=== PATIENT | male | born 1970 | race Caucasian/White ===

== ENCOUNTER 2020-09-14 14:03 | Inpatient (IN) | payer BC ==
--- NOTE | 2020-09-14 16:07 | XR ---
EXAMINATION TYPE: XR chest 2V DATE OF EXAM: 09/14/2020 COMPARISON: None HISTORY: Difficulty breathing, Covid TECHNIQUE: 2 view chest FINDINGS: Patchy subsegmental infiltrates are present within the mid and lower lung welhc can be com patible with atypical pneumonia in the proper clinical setting. Heart size is normal. Pulmonary vasculature is slightly prominent IMPRESSION: 1. Patchy bilateral lung infiltrates is nonspecific but can be compatible with atypical pneumonia
[2020-09-14] MEDS ORDERED: ONDANSETRON 4 MG/2 ML VIAL IVP STA (18:09)
[2020-09-14] MEDS ORDERED: dexAMETHasone 2 MG TAB PO STA (18:16)
[2020-09-14] MEDS ORDERED: ALBUTEROL HFA INHALER INHALATION STA (18:17)
[2020-09-14] MEDS ORDERED: SODIUM CHLORIDE 0.9% 1,000 ML IV STA (18:19)
--- NOTE | 2020-09-14 18:42 | ED ---
General Adult HPI - General Chief complaint: Shortness of Breath Stated complaint: COVID+ Source: patient, RN notes reviewed, old records reviewed Mode of arrival: wheelchair Limitations: no limitations - History of Present Illness Initial comments: This is a 50-year-old male who presents emergency Department stating he's had his positive COVID test he states that symptoms for about one week. Patient comes in today because she is feeling more short of breath. Patient's 93% on room air while talking to me. Patient has not been taking any Motrin or Tylenol. Patient has not had any nausea vomiting. Patient states he had a little bit of diarrhea earlier but no longer. Patient states his is also positive. Patient denies any lightheadedness or dizziness. Patient denies any chest pain or palpitations. - Related Data Allergies Allergy/AdvReac Type Severity Reaction Status Date / Time No Known Allergies Allergy Verified 09/14/20 14:40 Review of Systems ROS Statement: Those systems with pertinent positive or pertinent negative responses have been documented in the HPI. ROS Other: All systems not noted in ROS Statement are negative. Past Medical History Past Medical History: No Reported History History of Any Multi-Drug Resistant Organisms: None Reported Past Surgical History: No Surgical Hx Reported Past Psychological History: No Psychological Hx Reported Smoking Status: Former smoker Past Alcohol Use History: None Reported Past Drug Use History: None Reported General Exam - General Exam Comments Initial Comments: GENERAL: Patient is well-developed and well-nourished. Patient is nontoxic and well- hydrated and is in mild distress. ENT: Neck is soft and supple. No significant lymphadenopathy is noted. Oropharynx is clear. Moist mucous membranes. Neck has full range of motion without eliciting any pain. EYES: The sclera were anicteric and conjunctiva were pink and moist. Extraocular movements were intact and pupils were equal round and reactive to light. Eyelid s were unremarkable. PULMONARY: Patient is crackles bilateral bases. CARDIOVASCULAR: There is a regular rate and rhythm without any murmurs gallops or rubs. ABDOMEN: Soft and nontender with normal bowel sounds. SKIN: Skin is clear with no lesions or rashes and otherwise unremarkable. NEUROLOGIC: Patient is alert and oriented x3. Cranial nerves II through XII are grossly intact. Motor and sensory are also intact. Normal speech, volume and content. Symmetrical smile. MUSCULOSKELETAL: Normal extremities with adequate strength and full range of motion. LYMPHATICS: No significant lymphadenopathy is noted PSYCHIATRIC: Normal psychiatric evaluation. Limitations: no limitations Course Vital Signs 09/14/20 09/14/20 09/14/20 14:38 17:40 18:22 Temperature 98.8 F 98.6 F Pulse Rate 95 87 Respiratory 18 18 18 Rate Blood Pressure 132/89 123/83 O2 Sat by Pulse 91 L 93 L Oximetry 09/14/20 19:05 Temperature 98.6 F Pulse Rate 92 Respiratory 18 Rate Blood Pressure 130/87 O2 Sat by Pulse 94 L Oximetry Medical Decision Making - Medical Decision Making Patient received a couple puffs of albuterol and albuterol fluid. Chest x-ray shows extensive pneumonia. Patient was at 91% when I went back in the room on room air however when I ambulated the patient he dropped down to 86% need to be put on a couple liters of oxygen. Patient received steroids in the emergency department as well as albuterol inhaler. I spoke with Dr. noriega he agreed to admit the patient admitted the patient wrote admitting orders I continued the steroids on the floor. Disposition Clinical Impression: Pneumonia due to COVID-19 virus Disposition: ADMITTED IP TO THIS HOSP Referrals: None,Stated [Primary Care Provider] - 1-2 days Time of Disposition: 19:13
[2020-09-14] MEDS ORDERED: SODIUM CHLORIDE 0.9% 1,000 ML with MVI, ADULT NO.4 WITH VIT K 10 ML, THIAMINE 100 MG, F... IV ONE ×4 (19:20)
[2020-09-14] MEDS ORDERED: SODIUM CHLORIDE 0.9% 1,000 ML IV ONE (19:21)
[2020-09-14 20:07] LABS: Basophils # (A) 0.1 k/uL (0-0.2); Basophils % (A) 1 %; Eosinophils % (A) 0 %; HCT 45.1 % (39.0-53.0); Lymphocytes # (A) 0.7 k/uL (1.0-4.8); Lymphocytes % (A) 16 %; MCH 27.5 pg (25.0-35.0); MCHC 33.2 g/dL (31.0-37.0); MCV 82.7 fL (80.0-100.0); Mean Platelet Volume 7.8; Monocytes # (A) 0.5 k/uL (0-1.0); Monocytes % (A) 11 %; Neutrophils % (A) 68 %; Platelet Count 191 k/uL (150-450); RBC 5.45 m/uL (4.30-5.90); WBC 4.4 k/uL (3.8-10.6)
[2020-09-14 20:13] LABS: ALT 72 U/L (4-49); AST 59 U/L (17-59); African American GFR (CKD) >90 (>60 ml/min/1.73 sqM); Albumin 3.5 g/dL (3.5-5.0); Alkaline Phosphatase 93 U/L (38-126); Anion Gap 8 mmol/L; Blood Urea Nitrogen 15 mg/dL (9-20); Carbon Dioxide 31 mmol/L (22-30); Chloride 101 mmol/L (98-107); Glucose 98 mg/dL (74-99); Non-African American GFR(CKD) >90 (>60 ml/min/1.73 sqM); Potassium 3.9 mmol/L (3.5-5.1); Sodium 140 mmol/L (137-145); Total Bilirubin 1.7 mg/dL (0.2-1.3); Total Protein 6.5 g/dL (6.3-8.2)
[2020-09-14 21:16] LABS: C Reactive Protein 64.9 mg/L (<10.0); Magnesium 2.4 mg/dL (1.6-2.3)
[2020-09-14 21:22] LABS: INR 0.9 (<1.2); Partial Thromboplastin Time 23.7 sec (22.0-30.0); Prothrombin Time 10.2 sec (9.0-12.0)
[2020-09-15] MEDS ORDERED: AZITHROMYCIN 500 MG TAB PO STA (07:22)
--- NOTE | 2020-09-15 07:23 | P.HPIM ---
History of Present Illness H&P Date: 09/14/20 The patient is a 50-year-old male with no known PMH who presents the emergency room with complaints of cough, fever, chills, and lethargy. Patient notes that his symptoms started roughly a week ago, and he subsequently tested positive for COVID 5 days ago. He notes that his cough has become productive with yellow phlegm along with some shortness of breath upon exertion. He also notes loose bowel movements during this time. He denied chest pain, nausea, vomiting, leg pain, leg swelling, headaches, or dizziness. the patient was noted to be hypoxic with SpO2 of 86% upon exertion and was subsequently admitted to the medicine service for further management. Laboratory evaluation in the emergency room was reviewed. Review of Systems Pertinent positives and negatives as discussed in HPI, a complete review of systems was performed and all other systems are negative. Past Medical History Past Medical History: No Reported History History of Any Multi-Drug Resistant Organisms: None Reported Past Surgical History: No Surgical Hx Reported Past Anesthesia/Blood Transfusion Reactions: No Reported Reaction Past Psychological History: No Psychological Hx Reported Smoking Status: Former smoker Past Alcohol Use History: None Reported Past Drug Use History: None Reported Medications and Allergies Home Medications Medication Instructions Recorded Confirmed Type No Known Home Medications 09/14/20 09/14/20 History Allergies Allergy/AdvReac Type Severity Reaction Status Date / Time No Known Allergies Allergy Verified 09/14/20 19:43 Physical Exam Vitals: Vital Signs Temp Pulse Resp BP Pulse Ox 09/14/20 20:00 92 20 122/79 93 L 09/14/20 19:05 98.6 F 92 18 130/87 94 L 09/14/20 18:22 98.6 F 87 18 123/83 93 L 09/14/20 17:40 18 09/14/20 14:38 98.8 F 95 18 132/89 91 L Intake and Output 09/14/20 09/14/20 09/14/20 06:59 14:59 22:59 Other: Voiding Method Toilet Weight 97.522 kg 97.522 kg General: non toxic, no distress, appears at stated age, overweight Derm: no unusual rashes/lesions no unusual ecchymoses, warm, dry Head: atraumatic, normocephalic, symmetric Eyes: EOMI, no lid lag, anicteric sclera, pupils equal round reactive to light ENT: Nose and ears atraumatic, no thrush, no pharyngeal erythema Neck: No thyromegaly, no cervical lymphadenopathy, trachea midline, supple Mouth: no lip lesion, mucus membranes moist Cardiovascular: S1S2 reg, no murmur, positive posterior tibial pulse bilateral, no edema, capillary refill less than 2 seconds Lungs: bilateral rhonchi and fine crackles , no accessory muscle use Abdominal: soft, nontender to palpation, no guarding, no appreciable organomegaly, normal bowel sounds Ext: no gross muscle atrophy, muscle strength 5 out of 5 in all 4 extremities grossly, no contractures, Neuro: CN II-XI grossly intact, light touch intact all 4 extremities, finger to nose within normal limits, Psych: Alert, oriented, appropriate affect Results CBC & Chem 7: 09/14/20 19:54 09/14/20 19:54 Labs: Abnormal Lab Results - Last 24 Hours (Table) 09/14/20 09/14/20 09/14/20 Range/Units 19:54 19:54 19:54 Lymphocytes # 0.7 L (1.0-4.8) k/uL Carbon Dioxide 31 H (22-30) mmol/L Calcium 8.0 L (8.4-10.2) mg/dL Magnesium (1.6-2.3) mg/dL Total Bilirubin 1.7 H (0.2-1.3) mg/dL ALT 72 H (4-49) U/L Lactate Dehydrogenase (313-618) U/L C-Reactive Protein (<10.0) mg/L Coronavirus (PCR) Detected A (Not Detectd) 09/14/20 Range/Units 21:01 Lymphocytes # (1.0-4.8) k/uL Carbon Dioxide (22-30) mmol/L Calcium (8.4-10.2) mg/dL Magnesium 2.4 H (1.6-2.3) mg/dL Total Bilirubin (0.2-1.3) mg/dL ALT (4-49) U/L Lactate Dehydrogenase 1209 H (313-618) U/L C-Reactive Protein 64.9 H (<10.0) mg/L Coronavirus (PCR) (Not Detectd) Thrombosis Risk Factor Assmnt - Choose All That Apply Each Factor Represents 1 point: Age 41-60 years Other Risk Factors: No Thrombosis Risk Factor Assessment Total Risk Factor Score: 1 Thrombosis Risk Factor Assessment Level: Low Risk Assessment and Plan Plan: COVID-19 Pneumonitis with acute hypoxic respiratory failure -Continue with supplemental oxygen -Dexamethasone -Monitor inflammatory markers -Zinc, vitamin C, vitamin D, melatonin -Pulmonary consult DVT prophylaxis -Lovenox The patient is admitted with an anticipated greater than 2 midnight stay for evaluation of COVID CODE STATUS: Full Code Discussed with: patient Anticipated discharge date: 2-[address]: home A total of 35 minutes was spent on the care of this complex patient more than 50% of the time was spent in counseling and care coordination.
[2020-09-15] MEDS: dexAMETHasone 2 MG TAB PO SCH (08:18)
[2020-09-15] MEDS: ENOXAPARIN 40 MG/0.4 ML SYRINGE SQ SCH (08:18)
[2020-09-15] MEDS: ZINC SULFATE 220 MG CAP PO SCH (08:18)
[2020-09-15] MEDS: ASCORBIC ACID 500 MG TAB PO SCH (08:18)
[2020-09-15] MEDS: CHOLECALCIFEROL 25 MCG (1000 IU) TABLET PO SCH (08:18)
[2020-09-15 10:49] LABS: Ferritin 1262.1 ng/mL (22.0-322.0)
--- NOTE | 2020-09-15 11:25 | P.CNPUL ---
History of Present Illness Consult date: 09/15/20 Reason for consult: dyspnea, pneumonia History of present illness: 50-year-old male patient hospitalized forCOVID 19 related pneumonia and acute hypoxic respiratory failure. The patient presented to the ED yesterday because of cough and fever and chills and lethargy. His symptoms started 1 week ago. He initially underwent his testing admit express on 09/09/20. He was tested again yesterday in the emergency and he was again positive. His CRP is 64. His LDH is 1209. Coagulation profile is within normal limits. He does have lymphopenia. His chest x-ray showing patchy bilateral pulmonary infiltrates consistent with COVID 19 elated pneumonia.. The patient is currently on 3 L with a pulse of 96%. He was started on Decadron. The patient's is also infected with the same virus and she is doing well at home. The patient works [employer]. Review of Systems Constitutional: Reports fatigue, Reports fever, Reports weakness Eyes: denies as per HPI, denies blurred vision, denies bulging eye, denies decreased vision, denies diplopia, denies discharge, denies dry eye, denies irritation, denies itching, denies pain, denies photophobia, denies loss of peripheral vision, denies loss of vision, denies tunnel vision/blind spots Ears: deny: decreased hearing, ear discharge, earache, tinnitus Ears, nose, mouth and throat: Reports as per HPI Breasts: absent: as per HPI, gynecomastia Cardiovascular: Reports as per HPI, Reports decreased exercise tolerance, Repo rts dyspnea on exertion Respiratory: Reports cough, Reports dyspnea Genitourinary: Reports as per HPI Musculoskeletal: Reports as per HPI Musculoskeletal: absent: ankle pain, ankle stiffness, ankle swelling Integumentary: Reports as per HPI Neurological: Reports as per HPI, Reports weakness Psychiatric: Reports as per HPI Endocrine: Reports as per HPI Hematologic/Lymphatic: Reports as per HPI Allergic/Immunologic: Reports as per HPI Past Medical History Past Medical History: No Reported History History of Any Multi-Drug Resistant Organisms: None Reported Past Surgical History: No Surgical Hx Reported Past Anesthesia/Blood Transfusion Reactions: No Reported Reaction Past Psychological History: No Psychological Hx Reported Smoking Status: Former smoker Past Alcohol Use History: None Reported Past Drug Use History: None Reported Medications and Allergies Home Medications Medication Instructions Recorded Confirmed Type No Known Home Medications 09/14/20 09/14/20 History Allergies Allergy/AdvReac Type Severity Reaction Status Date / Time No Known Allergies Allergy Verified 09/14/20 19:43 Physical Exam Vitals: Vital Signs Temp Pulse Pulse Resp BP BP Pulse Ox 09/15/20 10:17 98.6 F 93 16 136/81 96 09/15/20 08:00 95 18 09/15/20 02:00 98.8 F 95 18 126/84 95 09/14/20 22:38 98.3 F 86 18 129/86 96 09/14/20 20:00 92 20 122/79 93 L 09/14/20 19:05 98.6 F 92 18 130/87 94 L 09/14/20 18:22 98.6 F 87 18 123/83 93 L 09/14/20 17:40 18 09/14/20 14:38 98.8 F 95 18 132/89 91 L Intake and Output 09/14/20 09/15/20 09/15/20 22:59 06:59 14:59 Intake Total 900 Balance 900 Intake: Intake, IV Titration 600 Amount Sodium Chloride 0.9% 1, 600 000 ml @ 75 mls/hr IV . [id number] ONE Rx#:[id number] Oral 300 Other: Voiding Method Toilet Toilet Weight 97.522 kg The patient appeared well nourished and normally developed. Vital signs as documented. Head exam is unremarkable. No scleral icterus or corneal arcus noted. Neck is without jugular venous distension, thyromegaly, or carotid bruits. Carotid upstrokes are brisk bilaterally. Lungs are clear to auscultation and percussion. Cardiac exam reveals the PMI to be normally sized and situated. Rhythm is regular. First and second heart sounds normal. No murmurs, rubs or gallops. Abdominal exam reveals normal bowel sounds, no masses, no organomegaly and no aortic enlargement. Extremities are nonedematous and both femoral and pedal pulses are normal.Examination of the skin revealed no evidence of significant rashes, suspicious appearing nevi or other concerning lesions.Neurologically, the patient is awake and alert and the patient does not have any focal neurological deficit. Cranial nerves are essentially intact. Results - Laboratory Findings CBC and BMP: 09/14/20 19:54 09/14/20 19:54 PT/INR, D-dimer PT 10.2 sec (9.0-12.0) 09/14/20 21:01 INR 0.9 (<1.2) 09/14/20 21:01 Abnormal lab findings: Abnormal Labs 09/14/20 09/14/20 09/14/20 19:54 19:54 19:54 Lymphocytes # 0.7 L Carbon Dioxide 31 H Calcium 8.0 L Magnesium Ferritin Total Bilirubin 1.7 H ALT 72 H Lactate Dehydrogenase C-Reactive Protein Coronavirus (PCR) Detected A 09/14/20 21:01 Lymphocytes # Carbon Dioxide Calcium Magnesium 2.4 H Ferritin 1262.1 H Total Bilirubin ALT Lactate Dehydrogenase 1209 H C-Reactive Protein 64.9 H Coronavirus (PCR) - Diagnostic Findings Chest x-ray: image reviewed Assessment and Plan Plan: 1 acute bilateral Covid 19 related pneumonia. The patient became symptomatic approximately a week ago. The patient became progressively more short of breath and he presented to the hospital because of hypoxemia and worsening dyspnea and he was found to have bilateral pulmonary infiltrates consistent with pneumonia. 2 acute hypoxic respiratory failure secondary to above currently on 3 L 3 lymphopenia secondary to above 4 abnormal inflammatory markers, secondary to above Plan We'll put the patient oxygen at 3 L and will titrate the flow to maintain a saturation above 90% Decadron 6 mg on a daily basis Remdesivir per protocol for a total of 5 days Will order units of, less than plasma as the patient is still early in the cou rse of disease process Lovenox 40 mg subcu for DVT prophylaxis Vitamin C and vitamin D and zinc supplements We'll continue to follow.
[2020-09-15] MEDS ORDERED: REMDESIVIR 200 MG in SODIUM CHLORIDE 0.9% 250 ML IVPB ONE (12:00)
--- NOTE | 2020-09-15 14:31 | P.PN ---
Subjective Progress Note Date: 09/15/20 Pt reports feeling much better today. He no longer feels chills, dizziness, or dyspneic. Objective - Vital Signs Vital signs: Vital Signs Temp 98.6 F 09/15/20 10:17 Pulse 93 09/15/20 10:17 Resp 16 09/15/20 10:17 BP 136/81 09/15/20 10:17 Pulse Ox 96 09/15/20 10:17 Intake & Output 09/14/20 09/15/20 09/15/20 18:59 06:59 18:59 Intake Total 900 Balance 900 Weight 97.522 kg 97.522 kg Intake: Intake, IV Titration 600 Amount Sodium Chloride 0.9% 1, 600 000 ml @ 75 mls/hr IV . [id number] ONE Rx#:[id number] Oral 300 Other: Voiding Method Toilet Toilet - Exam Gen: awake, alert HEENT: normocephalic, atraumatic, good hearing acuity, moist mucous membranes Resp: good air exchange, breathing comfortably with no accessory muscle use CVS: good distal perfusion x 4, GI: soft, NTTP, ND : no SPT, no CVAT, li catheter not present MSK: no pitting edema, no clubbing Neuro: non-focal, moving all extremities Psych: cooperative, euthymic mood - Labs CBC & Chem 7: 09/14/20 19:54 09/14/20 19:54 Labs: Abnormal Lab Results - Last 24 Hours (Table) 09/14/20 09/14/20 09/14/20 Range/Units 19:54 19:54 19:54 Lymphocytes # 0.7 L (1.0-4.8) k/uL D-Dimer (<0.60) mg/L FEU Carbon Dioxide 31 H (22-30) mmol/L Calcium 8.0 L (8.4-10.2) mg/dL Magnesium (1.6-2.3) mg/dL Ferritin (22.0-322.0) ng/mL Total Bilirubin 1.7 H (0.2-1.3) mg/dL ALT 72 H (4-49) U/L Lactate Dehydrogenase (313-618) U/L C-Reactive Protein (<10.0) mg/L Coronavirus (PCR) Detected A (Not Detectd) 09/14/20 09/15/20 Range/Units 21:01 11:29 Lymphocytes # (1.0-4.8) k/uL D-Dimer 0.86 H (<0.60) mg/L FEU Carbon Dioxide (22-30) mmol/L Calcium (8.4-10.2) mg/dL Magnesium 2.4 H (1.6-2.3) mg/dL Ferritin 1262.1 H (22.0-322.0) ng/mL Total Bilirubin (0.2-1.3) mg/dL ALT (4-49) U/L Lactate Dehydrogenase 1209 H (313-618) U/L C-Reactive Protein 64.9 H (<10.0) mg/L Coronavirus (PCR) (Not Detectd) Assessment and Plan Assessment: COVID-19 Pneumonitis with acute hypoxic respiratory failure -Continue with supplemental oxygen -Dexamethasone, day 08/02 -Monitor inflammatory markers -Zinc, vitamin C, vitamin D, melatonin -Pulmonary consult - ordered plasma DVT prophylaxis -Lovenox The patient is admitted with an anticipated greater than 2 midnight stay for evaluation of COVID CODE STATUS: Full Code Discussed with: patient Anticipated discharge date: 2-[address]: home
[2020-09-15] MEDS: MELATONIN 5 MG TABLET PO SCH (21:14)
--- NOTE | 2020-09-16 08:11 | XR ---
EXAMINATION TYPE: XR chest 1V portable DATE OF EXAM: 09/16/2020 COMPARISON: 09/14/2020 HISTORY: Shortness of breath TECHNIQUE: Single frontal view of the chest is obtained. FINDINGS: Mild mid and lower lung zone partially consolidative opacities unchanged compared to the prior study. There is no pleural effusion or pneumothorax. Heart size is normal for the technique. The osseous str uctures are intact. IMPRESSION: No change in the mild to moderate lung infiltrates.
[2020-09-16] MEDS: CHOLECALCIFEROL 25 MCG (1000 IU) TABLET PO SCH (08:15)
[2020-09-16] MEDS: ENOXAPARIN 40 MG/0.4 ML SYRINGE SQ SCH (08:15)
[2020-09-16] MEDS: ZINC SULFATE 220 MG CAP PO SCH (08:15)
[2020-09-16] MEDS: ASCORBIC ACID 500 MG TAB PO SCH (08:15)
[2020-09-16] MEDS: dexAMETHasone 2 MG TAB PO SCH (08:15)
[2020-09-16 08:59] LABS: HCT 42.8 % (39.6-50.0); HGB 13.7 g/dL (13.0-17.0); MCH 27.5 pg (27.0-32.0); MCV 85.8 fL (80.0-97.0); Mean Platelet Volume 10.8 fL (9.5-12.2); Platelet Count 246 X 10*3/uL (140-440); RBC 4.99 X 10*6/uL (4.40-5.60); RDW 12.7 % (11.5-14.5); WBC 4.89 X 10*3/uL (4.50-10.00)
[2020-09-16 09:28] LABS: African American GFR (CKD) 116.6 (60.0-200.0); Anion Gap 7.2 mmol/L (4.00-12.00); BUN/Creat Ratio 18.89 Ratio (12.00-20.00); Calcium 8.6 mg/dL (8.7-10.3); Carbon Dioxide 28.8 mmol/L (21.6-31.8); Ferritin 916.8 ng/mL (22.0-322.0); Non-African American GFR(CKD) 100.6 (60.0-200.0); Potassium 4.2 mmol/L (3.5-5.5)
[2020-09-16] MEDS: AZITHROMYCIN 250 MG TAB PO SCH (10:06)
--- NOTE | 2020-09-16 11:32 | P.PN ---
Subjective Progress Note Date: 09/16/20 50-year-old male patient hospitalized forCOVID 19 related pneumonia and acute h ypoxic respiratory failure. The patient presented to the ED yesterday because of cough and fever and chills and lethargy. His symptoms started 1 week ago. He initially underwent his testing admit express on 09/09/20. He was tested again yesterday in the emergency and he was again positive. His CRP is 64. His LDH is 1209. Coagulation profile is within normal limits. He does have lymphopenia. His chest x-ray showing patchy bilateral pulmonary infiltrates consistent with COVID 19 elated pneumonia.. The patient is currently on 3 L with a pulse of 96%. He was started on Decadron. The patient's is also infected with the same virus and she is doing well at home. The patient works in manufacturing. On today's evaluation of 09/16/2020, the patient is on 2 L. He was started on steroids. He was started on REM and he is on day #2. His chest x-ray findings are stable. Clinically the patient is feeling better compared to yesterday. No other new complaints for now. No altered mentation. No nausea. No vomiting. No diarrhea. The blood work from today is showing a white cell count of 4.8 with a hemoglobin of 13.7. D-dimer is at 1.06. LDH is down to 356 with a CRP of 5. Also received convalescent plasma yesterday. Objective - Vital Signs Vital signs: Vital Signs Temp 98.5 F 09/16/20 10:15 Pulse 87 09/16/20 10:15 Resp 13 09/16/20 10:15 BP 131/79 09/16/20 10:15 Pulse Ox 91 L 09/16/20 10:15 Intake & Output 09/15/20 09/16/20 09/16/20 18:59 06:59 18:59 Intake Total 0 305 Balance 0 305 Intake: Blood Product 0 305 Ffp Convalescent Plasma 0 305 Cpd Unit [id number] Other: Voiding Method Toilet # Voids 2 2 - Exam The patient appeared well nourished and normally developed. Vital signs as documented. Head exam is unremarkable. No scleral icterus or corneal arcus noted. Neck is without jugular venous distension, thyromegaly, or carotid bruits. Carotid upstrokes are brisk bilaterally. Lungs are clear to auscultation and percussion. Cardiac exam reveals the PMI to be normally sized and situated. Rhythm is regular. First and second heart sounds normal. No murmurs, rubs or gallops. Abdominal exam reveals normal bowel sounds, no masses, no organomegaly and no aortic enlargement. Extremities are nonedematous and both femoral and pedal pulses are normal.Examination of the skin revealed no evidence of significant rashes, suspicious appearing nevi or other concerning lesions.Neurologically, the patient is awake and alert and the patient does not have any focal neurological deficit. Cranial nerves are essentially intact. - Labs CBC & Chem 7: 09/16/20 06:24 09/16/20 06:24 Labs: Abnormal Lab Results - Last 24 Hours (Table) 09/15/20 09/16/20 09/16/20 Range/Units 11:29 06:24 06:24 D-Dimer 0.86 H 1.06 H (<0.60) mg/L FEU Glucose 137 H (70-110) mg/dL Calcium 8.6 L (8.7-10.3) mg/dL Ferritin 916.8 H (22.0-322.0) ng/mL Lactate Dehydrogenase 356 H (120-246) U/L C-Reactive Protein 5.0 H (0.0-0.8) mg/dL Microbiology - Last 24 Hours (Table) 09/14/20 21:01 Blood Culture - Preliminary Blood No Growth after 24 hours Assessment and Plan Plan: 1 acute bilateral Covid 19 related pneumonia. The patient became symptomatic approximately a week ago. The patient became progressively more short of breath and he presented to the hospital because of hypoxemia and worsening dyspnea and he was found to have bilateral pulmonary infiltrates consistent with pneumonia. Clinically improving 2 acute hypoxic respiratory failure secondary to above currently on 2 L 3 lymphopenia secondary to above 4 abnormal inflammatory markers, secondary to above Plan We'll put the patient oxygen at 2 L and will titrate the flow to maintain a saturation above 90% Decadron 6 mg on a daily basis Remdesivir per protocol for a total of 5 days currently on day #2 3 units of convalescent plasma LDH level is improving Lovenox 40 mg subcu for DVT prophylaxis Vitamin C and vitamin D and zinc supplements We'll continue to follow.
[2020-09-16] MEDS: REMDESIVIR 100 MG in SODIUM CHLORIDE 0.9% 250 ML IVPB SCH (13:12)
--- NOTE | 2020-09-16 15:35 | P.PN ---
Subjective Progress Note Date: 09/16/20 Principal diagnosis: covid pneumonia Patient currently doing well. He was started on nasal cannula 2 L by pulmonary service. He does not complain of shortness of breath or any pain. No fevers or chills. Still having cough. Objective - Vital Signs Vital signs: Vital Signs Temp 98.9 F 09/16/20 15:21 Pulse 91 09/16/20 15:21 Resp 15 09/16/20 15:21 BP 141/83 09/16/20 15:21 Pulse Ox 93 L 09/16/20 15:21 Intake & Output 09/15/20 09/16/20 09/16/20 18:59 06:59 18:59 Intake Total 0 305 Balance 0 305 Intake: Blood Product 0 305 Ffp Convalescent Plasma 0 305 Cpd Unit [id number] Other: Voiding Method Toilet Toilet # Voids 2 2 - Exam Gen: awake, alert HEENT: normocephalic, atraumatic, good hearing acuity, moist mucous membranes Resp: good air exchange, breathing comfortably with no accessory muscle use CVS: good distal perfusion x 4, GI: soft, NTTP, ND : no SPT, no CVAT, li catheter not present MSK: no pitting edema, no clubbing Neuro: non-focal, moving all extremities Psych: cooperative, euthymic mood - Labs CBC & Chem 7: 09/16/20 06:24 09/16/20 06:24 Labs: Abnormal Lab Results - Last 24 Hours (Table) 09/16/20 09/16/20 Range/Units 06:24 06:24 D-Dimer 1.06 H (<0.60) mg/L FEU Glucose 137 H (70-110) mg/dL Calcium 8.6 L (8.7-10.3) mg/dL Ferritin 916.8 H (22.0-322.0) ng/mL Lactate Dehydrogenase 356 H (120-246) U/L C-Reactive Protein 5.0 H (0.0-0.8) mg/dL Microbiology - Last 24 Hours (Table) 09/14/20 21:01 Blood Culture - Preliminary Blood No Growth after 24 hours Assessment and Plan Plan: COVID-19 Pneumonitis with acute hypoxic respiratory failure -Continue with supplemental oxygen -Continue convalescent plasma, remdisivir, dexamethasone -Monitor inflammatory markers -Zinc, vitamin C, vitamin D, melatonin -Pulmonary following DVT prophylaxis -Lovenox CODE STATUS: Full Code Discussed with: patient Anticipated discharge date: [address]: home
[2020-09-16] MEDS: MELATONIN 5 MG TABLET PO SCH (21:49)
[2020-09-17] MEDS: dexAMETHasone 2 MG TAB PO SCH (07:59)
[2020-09-17] MEDS: ASCORBIC ACID 500 MG TAB PO SCH (07:59)
[2020-09-17] MEDS: CHOLECALCIFEROL 25 MCG (1000 IU) TABLET PO SCH (07:59)
[2020-09-17] MEDS: ZINC SULFATE 220 MG CAP PO SCH (07:59)
[2020-09-17] MEDS: ENOXAPARIN 40 MG/0.4 ML SYRINGE SQ SCH (07:59)
[2020-09-17] MEDS: AZITHROMYCIN 250 MG TAB PO SCH (08:23)
[2020-09-17 10:11] VITALS: RESP 19
--- NOTE | 2020-09-17 11:51 | P.PN ---
Subjective Progress Note Date: 09/17/20 50-year-old male patient hospitalized forCOVID 19 related pneumonia and acute h ypoxic respiratory failure. The patient presented to the ED yesterday because of cough and fever and chills and lethargy. His symptoms started 1 week ago. He initially underwent his testing admit express on 09/09/20. He was tested again yesterday in the emergency and he was again positive. His CRP is 64. His LDH is 1209. Coagulation profile is within normal limits. He does have lymphopenia. His chest x-ray showing patchy bilateral pulmonary infiltrates consistent with COVID 19 elated pneumonia.. The patient is currently on 3 L with a pulse of 96%. He was started on Decadron. The patient's is also infected with the same virus and she is doing well at home. The patient works in manufacturing. On today's evaluation of 09/16/2020, the patient is on 2 L. He was started on steroids. He was started on REM and he is on day #2. His chest x-ray findings are stable. Clinically the patient is feeling better compared to yesterday. No other new complaints for now. No altered mentation. No nausea. No vomiting. No diarrhea. The blood work from today is showing a white cell count of 4.8 with a hemoglobin of 13.7. D-dimer is at 1.06. LDH is down to 356 with a CRP of 5. Also received convalescent plasma yesterday. On today's evaluation Carlos is on 2 L of oxygen by nasal cannula. He is on Decadron. Is also on REM day #3. Doing well. No specific complaints. He was weaned down further this morning and I was able to bring about the room air oxygen and his pulse ox is around 91%. His LDH is down to 356, his CRP level is down to 5, his d-dimer is at 1.0. He has no specific complaints otherwise for now. Objective - Vital Signs Vital signs: Vital Signs Temp 98.0 F 09/17/20 10:11 Pulse 96 09/17/20 10:11 Resp 19 09/17/20 10:11 BP 145/89 09/17/20 10:11 Pulse Ox 91 L 09/17/20 10:11 Intake & Output 09/16/20 09/17/20 09/17/20 18:59 06:59 18:59 Intake Total 250 Balance 250 Intake: IV 250 Remdesivir 100 mg In 250 Sodium Chloride 0.9% 250 ml @ 250 mls/hr IVPB DAILY@1200 [facility] Rx#: [id number] Other: Voiding Method Toilet # Voids 2 1 - Exam The patient appeared well nourished and normally developed. Vital signs as documented. Head exam is unremarkable. No scleral icterus or corneal arcus noted. Neck is without jugular venous distension, thyromegaly, or carotid bruits. Carotid upstrokes are brisk bilaterally. Lungs are clear to auscultation and percussion. Cardiac exam reveals the PMI to be normally sized and situated. Rhythm is regular. First and second heart sounds normal. No murmurs, rubs or gallops. Abdominal exam reveals normal bowel sounds, no masses, no organomegaly and no aortic enlargement. Extremities are nonedematous and both femoral and pedal pulses are normal.Examination of the skin revealed no evidence of significant rashes, suspicious appearing nevi or other concerning lesions.Neurologically, the patient is awake and alert and the patient does not have any focal neurological deficit. Cranial nerves are essentially intact. - Labs CBC & Chem 7: 09/16/20 06:24 09/16/20 06:24 Labs: Microbiology - Last 24 Hours (Table) 09/14/20 21:01 Blood Culture - Preliminary Blood No Growth after 48 hours Assessment and Plan Plan: 1 acute bilateral Covid 19 related pneumonia. The patient became symptomatic approximately a week ago. The patient became progressively more short of breath and he presented to the hospital because of hypoxemia and worsening dyspnea and he was found to have bilateral pulmonary infiltrates consistent with pneumonia. Clinically improving 2 acute hypoxic respiratory failure secondary to above currently on 2 L, recovered 3 lymphopenia secondary to above 4 abnormal inflammatory markers, secondary to above Plan Titrated this patient to room air oxygen Decadron 6 mg on a daily basis Remdesivir per protocol for a total of 5 days currently on day #3 Received units of convalescent plasma LDH level is improving Lovenox 40 mg subcu for DVT prophylaxis Vitamin C and vitamin D and zinc supplements We'll continue to follow. Possible discharge today, I think we should be able to cut down his REM treatment course to 3 days and let him go as the patient has improved clinically and his significantly better
[2020-09-17] MEDS: REMDESIVIR 100 MG in SODIUM CHLORIDE 0.9% 250 ML IVPB SCH (11:57)
--- NOTE | 2020-09-17 13:57 | P.DS ---
Providers Date of admission: 09/14/20 19:21 Expected date of discharge: 09/17/20 Attending physician: Hector Salazar MD Consults: 09/15/20 07:20 Consult Physician Urgent Consulting Provider: Francheska Drummond Consult Reason/Comments: COVID Do you want consulting provider notified?: Yes Primary care physician: Stated None Hospital Course: 50-year-old male with no known PMH who presents the emergency room with complaints of cough, fever, chills, and lethargy. Patient notes that his symptoms started roughly a week ago, and he subsequently tested positive for COVID 5 days ago. He notes that his cough has become productive with yellow phlegm along with some shortness of breath upon exertion. He also notes loose bowel movements during this time. He denied chest pain, nausea, vomiting, leg pain, leg swelling, headaches, or dizziness. Of note his was also infected with the same virus and she is doing well at home. In the ER the patient was noted to be hypoxic with SpO2 of 86% upon exertion and was subsequently admitted to the medicine service for further management. Labs showed CRP 64, LDH 1209. Coagulation profile within normal limits. + lymphopenia. His chest x-ray showed patchy bilateral pulmonary infiltrates consistent with COVID 19 elated pneumonia. He was placed on 3 L with a pulse of 96%. He was started on Decadron, remdisivir and convalescent plasma. Patient improved and did very well throughout the hospitalization. He was taken off the oxygen.. He was ambulated today and his O2 sats remained normal. He was cleared by pulmonary for discharge. He will be discharged on a steroid taper in a stable condition. Time for discharge 36 min Plan - Discharge Summary Discharge Rx Participant: No New Discharge Prescriptions: New Dexamethasone [Decadron] 4 mg PO DAILY 7 Days #7 tablet Discharge Medication List Dexamethasone [Decadron] 4 mg PO DAILY 7 Days #7 tablet 09/17/20 [Rx] Follow up Appointment(s)/Referral(s): None,Stated [Primary Care Provider] - 1-2 days Francheska Drummond MD [STAFF PHYSICIAN] - 2 Weeks (follow up xray) Patient Instructions/Handouts: Coronavirus Disease 2019 (COVID-19)
[2020-09-17 14:17] VITALS: BP 121/75; PULSE 79; TEMP 98.6
== END 2020-09-17 14:44 | disposition home or self-care (01) | DRG 177 ==
LOC: EC 14:03 → 4SSUR 19:21
PROVIDERS: ADMIT Internal Medicine; ATTEND Internal Medicine
PROC: XW13325 Transfusion of Convalescent Plasma (Nonautologous) into Peripheral Vein, Percutaneous Approach, New Technology Group 5 (ICD-10-PCS; principal; 2020-09-15)
PROC: XW033E5 Introduction of Remdesivir Anti-infective into Peripheral Vein, Percutaneous Approach, New Technology Group 5 (ICD-10-PCS; 2020-09-15)
DX: U07.1 COVID-19 (principal); J12.82 Pneumonia due to coronavirus disease 2019; J96.01 Acute respiratory failure with hypoxia; D72.810 Lymphocytopenia; Z87.891 Personal history of nicotine dependence
CPT/HCPCS: 71045; 71046; 80048; 80053; 82728; 83605; 83615; 83735; 84145; 85025; 85027; 85379; 85610; 85730; 86140; 86850; 86900; 86901; 87040; 87635; 94640; 99285

== ENCOUNTER 2023-12-15 10:42 | Emergency (ER) | payer BC ==
[2023-12-15 11:01] VITALS: RESP 18
[2023-12-15] MEDS: SODIUM CHLORIDE 0.9% 1,000 ML IV STA (11:41)
--- NOTE | 2023-12-15 11:50 | ED ---
Nausea/Vomiting/Diarrhea HPI - General Chief complaint: Abdominal Pain Stated complaint: Abd pain, vomiting Time Seen by Provider: 12/15/23 11:09 Source: patient, family, RN notes reviewed Mode of arrival: ambulatory Limitations: no limitations - History of Present Illness Initial comments: This is a 53-year-old male who presents to the emergency department for episodes of diaphoresis, nausea, and vomiting. States that for the last month he has these episodes where he develops fevers and chills and will start sweating. He then develops nausea and vomiting with mild abdominal discomfort. After vomiting he states that he starts to feel better. He may then go days or weeks between an episode before it happens again. Unsure of anything that may trigger this. He initially attributed this to the flu, but became concerned when it became a recurrent issue. He initially went to urgent care and was given Zofran and an antacid, which was helpful. He was then advised to come to the emergency department for further evaluation. Denies any chest pain or shortness of breath associated with this. MD complaint: nausea, vomiting - Related Data Previous Rx's Medication Instructions Recorded dexAMETHasone [Decadron] 4 mg PO DAILY 7 Days #7 tablet 09/17/20 Cephalexin [Keflex] 500 mg PO Q6HR 7 Days #28 cap 12/15/23 Ondansetron Odt [Zofran Odt] 4 mg PO Q8HR PRN #20 tab 12/15/23 Allergies Allergy/AdvReac Type Severity Reaction Status Date / Time No Known Allergies Allergy Verified 12/15/23 11:01 Review of Systems ROS Statement: Those systems with pertinent positive or pertinent negative responses have been documented in the HPI. ROS Other: All systems not noted in ROS Statement are negative. Past Medical History Past Medical History: No Reported History History of Any Multi-Drug Resistant Organisms: None Reported Past Surgical History: No Surgical Hx Reported Past Anesthesia/Blood Transfusion Reactions: No Reported Reaction Past Psychological History: No Psychological Hx Reported Smoking Status: Former smoker Past Alcohol Use History: None Reported Past Drug Use History: None Reported General Exam Limitations: no limitations General appearance: alert, in no apparent distress Head exam: Present: atraumatic, normocephalic, normal inspection Respiratory exam: Present: normal lung sounds bilaterally. Absent: respiratory distress, wheezes, rales, rhonchi, stridor Cardiovascular Exam: Present: regular rate, normal rhythm, normal heart sounds. Absent: systolic murmur, diastolic murmur, rubs, gallop, clicks GI/Abdominal exam: Present: soft, normal bowel sounds. Absent: distended, tenderness, guarding, rebound, rigid Neurological exam: Present: alert, oriented X3, CN II-XII intact Psychiatric exam: Present: normal affect, normal mood Skin exam: Present: warm, dry, intact, normal color. Absent: rash Course Vital Signs 12/15/23 12/15/23 10:57 12:50 Temperature 98.5 F 98.4 F Pulse Rate 98 86 Respiratory 18 18 Rate Blood Pressure 116/74 118/78 O2 Sat by Pulse 96 97 Oximetry Medical Decision Making - Medical Decision Making This is a 53 year old male who presents to the emergency department for nausea and vomiting. Was pt. sent in by a medical professional or institution? @ -No Did you speak to anyone other than the patient for history? @ -No Did you review nursing and triage notes? @ -Yes, and I agree, it is accurate with regards to the patient's symptoms. Were old charts reviewed? @ -No Differential Diagnosis? @ -Differential Nausea and Vomiting: Gastroenteritis, cholecystitis, appendicitis, pancreatitis, migraine, benign positional vertigo, food borne illness, pyelonephritis, irritable bowel syndrome, influenza, Covid, GERD, incarcerated hernia, intestinal obstruction, this is not meant to be an all-inclusive list. EKG interpreted by me (3pts min.)? @ -EKG interpreted by me demonstrating the following: Sinus rhythm. Ventricular rate 85 bpm, LA interval 146 ms, QRS duration 121 ms, QTc 408 ms. X-rays interpreted by me (1pt min.)? @ -Not obtained CT interpreted by me (1pt min.)? @ -CT scan of the abdomen and pelvis obtained. My interpretation identifies no evidence of bowel wall thickening or free air. U/S interpreted by me (1pt. min.)? @ -Not obtained What testing was considered but not performed? (CT, X-rays, U/S, labs)? Why? @ -None What meds were considered but not given? Why? @ -None Did you discuss the management of the patient with other professionals? @ -No Did you reconcile home meds? @ -No Was smoking cessation discussed for >3mins.? @ -No Was critical care preformed (if so, how long)? @ -No Were there social determinants of health that impacted care today? How? (Homelessness, low income, unemployed, alcoholism, drug addiction, transportation, low edu. Level, literacy, decrease access to med. care, group home, rehab)? @ -No Was there de-escalation of care discussed even if they declined? (Discuss DNR or withdrawal of care, Hospice)? @ -No What co-morbidities impacted this encounter? (DM, HTN, Smoking, COPD, CAD, Cancer, CVA, Hep., AIDS, mental health diagnosis, sleep apnea, morbid obesity)? @ -None Was patient admitted / discharged? @ -Discharged. Lab work demonstrates leukocytosis and a mild elevation in bilirubin. Urinalysis suggestive of infection. CT scan of the abdomen and pelvis demonstrates moderate to severe circumferential bladder wall thickening and mild prostatomegaly. Patient also noted to have hepatosplenomegaly. Findings reviewed with the patient. He was given a liter bolus of IV fluids in the emergency department. Discussed that while he does appear to have UTI, it is unlikely that this is the only cause of the recurrent symptoms. 1g of ceftriaxone was administered in the emergency department and he was given a prescription for Keflex and Zofran. He was also given information for local primary care providers as well as urology follow-up. Patient discharged home in stable condition with strict return parameters. Undiagnosed new problem with uncertain prognosis? @ -None Drug Therapy requiring intensive monitoring for toxicity (Heparin, Nitro, Insulin, Cardizem)? @ -None Were any procedures done? @ -None Diagnosis/symptom? @ -UTI, nausea and vomiting Acute, or Chronic, or Acute on Chronic? @ -Acute Uncomplicated (without systemic symptoms) or Complicated (systemic symptoms)? @ -Uncomplicated Side effects of treatment? @ -None Exacerbation, Progression, or Severe Exacerbation] @ -Not applicable Poses a threat to life or bodily function? @ -No Return precautions reviewed in depth, the patient is instructed to return to the emergency department with any new, worsening, or concerning symptoms. Patient verbalized understanding. This case was discussed in detail with the attending ED physician, Dr. Yost. Presentation, findings, and treatment plan discussed in detail as well. - Lab Data Result diagrams: 12/15/23 11:31 12/15/23 11:31 Lab Results 12/15/23 12/15/23 12/15/23 Range/Units 11:31 11:31 11:31 WBC 18.7 H (3.8-10.6) k/uL RBC 5.49 (4.30-5.90) m/uL Hgb 14.6 (13.0-17.5) gm/dL Hct 45.5 (39.0-53.0) % MCV 82.8 (80.0-100.0) fL MCH 26.6 (25.0-35.0) pg MCHC 32.1 (31.0-37.0) g/dL RDW 14.1 (11.5-15.5) % Plt Count 207 (150-450) k/uL MPV 7.2 Neutrophils % 90 % Lymphocytes % 4 % Monocytes % 5 % Eosinophils % 0 % Basophils % 0 % Neutrophils # 16.8 H (1.3-7.7) k/uL Lymphocytes # 0.8 L (1.0-4.8) k/uL Monocytes # 0.9 (0-1.0) k/uL Eosinophils # 0.1 (0-0.7) k/uL Basophils # 0.1 (0-0.2) k/uL Sodium 140 (137-145) mmol/L Potassium 4.4 (3.5-5.1) mmol/L Chloride 105 (98-107) mmol/L Carbon Dioxide 25 (22-30) mmol/L Anion Gap 10 mmol/L BUN 18 (9-20) mg/dL Creatinine 1.16 (0.66-1.25) mg/dL Est GFR (CKD-EPI)AfAm 85 (>60 ml/min/1.73 sqM) Est GFR (CKD-EPI)NonAf 73 (>60 ml/min/1.73 sqM) Glucose 139 H (74-99) mg/dL Plasma Lactic Acid Hong (0.7-2.0) mmol/L Calcium 9.2 (8.4-10.2) mg/dL Total Bilirubin 2.2 H (0.2-1.3) mg/dL AST 21 (17-59) U/L ALT 23 (4-49) U/L Alkaline Phosphatase 102 (38-126) U/L Troponin I (0.000-0.034) ng/mL Total Protein 7.7 (6.3-8.2) g/dL Albumin 4.4 (3.5-5.0) g/dL Amylase 48 (30-110) U/L Lipase 47 (23-300) U/L Urine Color Yellow Urine Appearance Cloudy (Clear) Urine pH 6.5 (5.0-8.0) Ur Specific [place] 1.021 (1.001-1.035) Urine Protein 1+ H (Negative) Urine Glucose (UA) Negative (Negative) Urine Ketones Negative (Negative) Urine Blood Negative (Negative) Urine Nitrite Negative (Negative) Urine Bilirubin Negative (Negative) Urine Urobilinogen 6.0 (<2.0) mg/dL Ur Leukocyte Esterase Large H (Negative) Urine RBC 4 (0-5) /hpf Urine WBC 40 H (0-5) /hpf Ur Squamous Epith Cells 2 (0-4) /hpf Amorphous Sediment Moderate H (None) /hpf Urine Bacteria Moderate H (None) /hpf Hyaline Casts 17 H (0-2) /lpf Urine Mucus Many H (None) /hpf Influenza Type A (PCR) (Not Detectd) Influenza Type B (PCR) (Not Detectd) RSV (PCR) (Not Detectd) SARS-CoV-2 (PCR) (Not Detectd) 12/15/23 12/15/23 12/15/23 Range/Units 11:31 11:31 11:31 WBC (3.8-10.6) k/uL RBC (4.30-5.90) m/uL Hgb (13.0-17.5) gm/dL Hct (39.0-53.0) % MCV (80.0-100.0) fL MCH (25.0-35.0) pg MCHC (31.0-37.0) g/dL RDW (11.5-15.5) % Plt Count (150-450) k/uL MPV Neutrophils % % Lymphocytes % % Monocytes % % Eosinophils % % Basophils % % Neutrophils # (1.3-7.7) k/uL Lymphocytes # (1.0-4.8) k/uL Monocytes # (0-1.0) k/uL Eosinophils # (0-0.7) k/uL Basophils # (0-0.2) k/uL Sodium (137-145) mmol/L Potassium (3.5-5.1) mmol/L Chloride (98-107) mmol/L Carbon Dioxide (22-30) mmol/L Anion Gap mmol/L BUN (9-20) mg/dL Creatinine (0.66-1.25) mg/dL Est GFR (CKD-EPI)AfAm (>60 ml/min/1.73 sqM) Est GFR (CKD-EPI)NonAf (>60 ml/min/1.73 sqM) Glucose (74-99) mg/dL Plasma Lactic Acid Hong 0.9 (0.7-2.0) mmol/L Calcium (8.4-10.2) mg/dL Total Bilirubin (0.2-1.3) mg/dL AST (17-59) U/L ALT (4-49) U/L Alkaline Phosphatase (38-126) U/L Troponin I <0.012 (0.000-0.034) ng/mL Total Protein (6.3-8.2) g/dL Albumin (3.5-5.0) g/dL Amylase (30-110) U/L Lipase (23-300) U/L Urine Color Urine Appearance (Clear) Urine pH (5.0-8.0) Ur Specific [place] (1.001-1.035) Urine Protein (Negative) Urine Glucose (UA) (Negative) Urine Ketones (Negative) Urine Blood (Negative) Urine Nitrite (Negative) Urine Bilirubin (Negative) Urine Urobilinogen (<2.0) mg/dL Ur Leukocyte Esterase (Negative) Urine RBC (0-5) /hpf Urine WBC (0-5) /hpf Ur Squamous Epith Cells (0-4) /hpf Amorphous Sediment (None) /hpf Urine Bacteria (None) /hpf Hyaline Casts (0-2) /lpf Urine Mucus (None) /hpf Influenza Type A (PCR) Not Detected (Not Detectd) Influenza Type B (PCR) Not Detected (Not Detectd) RSV (PCR) Not Detected (Not Detectd) SARS-CoV-2 (PCR) Not Detected (Not Detectd) - Radiology Data Radiology results: report reviewed, image reviewed Disposition Clinical Impression: UTI (urinary tract infection), Nausea and vomiting Disposition: HOME SELF-CARE Instructions (If sedation given, give patient instructions): Urinary Tract Infection in Men (ED) Additional Instructions: Return to the emergency department with any new, worsening, or concerning s ymptoms. Take the antibiotic as prescribed for 7 days. You can take the Zofran up to every 8 hours as needed for nausea and vomiting. Contact urology as listed below for a follow-up appointment. Let them know that you were seen in the emergency department and found to have a severely thickened bladder that needs follow-up. Make sure you review the list of local primary care providers below to become established for ongoing medical care and reevaluation of ongoing symptoms. Prescriptions: Cephalexin [Keflex] 500 mg PO Q6HR 7 Days #28 cap Ondansetron Odt [Zofran Odt] 4 mg PO Q8HR PRN #20 tab PRN Reason: Nausea And Vomiting Is patient prescribed a controlled substance at d/c from ED?: No Referrals: None,Stated [Primary Care Provider] - 1-2 days Ap Velázquez MD [STAFF PHYSICIAN] - 1-2 days Forms: Area PCPs Time of Disposition: 12:43
[2023-12-15 11:51] LABS: Basophils # (A) 0.1 k/uL (0-0.2); Basophils % (A) 0 %; Eosinophils # (A) 0.1 k/uL (0-0.7); Eosinophils % (A) 0 %; HCT 45.5 % (39.0-53.0); HGB 14.6 gm/dL (13.0-17.5); Lymphocytes # (A) 0.8 k/uL (1.0-4.8); Lymphocytes % (A) 4 %; MCH 26.6 pg (25.0-35.0); MCHC 32.1 g/dL (31.0-37.0); MCV 82.8 fL (80.0-100.0); Mean Platelet Volume 7.2; Monocytes # (A) 0.9 k/uL (0-1.0); Monocytes % (A) 5 %; Neutrophils # (A) 16.8 k/uL (1.3-7.7); Neutrophils % (A) 90 %; Platelet Count 207 k/uL (150-450); RBC 5.49 m/uL (4.30-5.90); RDW 14.1 % (11.5-15.5); WBC 18.7 k/uL (3.8-10.6)
[2023-12-15 12:02] LABS: ALT 23 U/L (4-49); AST 21 U/L (17-59); African American GFR (CKD) 85 (>60 ml/min/1.73 sqM); Albumin 4.4 g/dL (3.5-5.0); Alkaline Phosphatase 102 U/L (38-126); Amylase 48 U/L (30-110); Anion Gap 10 mmol/L; Blood Urea Nitrogen 18 mg/dL (9-20); Calcium 9.2 mg/dL (8.4-10.2); Carbon Dioxide 25 mmol/L (22-30); Chloride 105 mmol/L (98-107); Glucose 139 mg/dL (74-99); Lipase 47 U/L (23-300); Non-African American GFR(CKD) 73 (>60 ml/min/1.73 sqM); Potassium 4.4 mmol/L (3.5-5.1); Sodium 140 mmol/L (137-145); Total Bilirubin 2.2 mg/dL (0.2-1.3); Total Protein 7.7 g/dL (6.3-8.2)
[2023-12-15 12:04] LABS: Amorphous Sediment,Urine Moderate /hpf; Appearance,Urine Cloudy (Clear); Bacteria,Urine Moderate /hpf; Bilirubin,Urine Negative (Negative); Blood,Urine Negative (Negative); Color,Urine Yellow; Glucose,Urine (UA) Negative (Negative); Hyaline Casts,Urine 17 /lpf (0-2); Ketones,Urine Negative (Negative); Leukocyte Esterase,Urine Large (Negative); Mucus,Urine Many /hpf; Nitrite,Urine Negative (Negative); PH, Urine 6.5 (5.0-8.0); Protein,Urine 1+ (Negative); RBC,Urine 4 /hpf (0-5); Specific Gravity,Urine 1.021 (1.001-1.035); Squamous Epithelial Cell,Urine 2 /hpf (0-4); WBC,Urine 40 /hpf (0-5)
--- NOTE | 2023-12-15 12:19 | CT ---
EXAMINATION TYPE: CT abdomen pelvis w con DATE OF EXAM: 12/15/2023 COMPARISON: None HISTORY: 53-year-old male Abdominal pain, acute, nonlocalized TECHNIQUE: Contiguous axial scanning of the abdomen and pelvis following administration of 100 ml Iso marietta 300 IV contrast. Delayed images through the kidneys and coronal/sagittal reconstructions perform ed. CT DLP: 1469.2 mGycm Automated exposure control for dose reduction was used. FINDINGS: Heart normal size without pericardial effusion. Lung bases clear without pleural effusion. Liver mildly enlarged at 19.6 cm with mildly diminished attenuation. No focal lesion. No biliary duct al dilatation. Portal venous system is patent. Gallbladder, adrenal glands, left kidney, and pancreas appear within normal limits. Splenomegaly at 15.2 cm measured on coronal series. Benign 1.5 cm cortical cyst medial upper pole right kidney. Symmetric uptake and excretion of contras t from both kidneys. No dilated small bowel, free fluid, or free air. No mesenteric or retroperitoneal lymphadenopathy. Normal appendix. Mild to moderate scattered stool. No pericolonic inflammatory change. Moderate to severe circumferential bladder wall thickening. Prostate gland mildly enlarged at 4.6 cm wide. No abnormal fluid collection in the pelvis or pelvic lymphadenopathy. Bones: No osseous destructive process. IMPRESSION: 1. MODERATE TO SEVERE CIRCUMFERENTIAL BLADDER WALL THICKENING. CORRELATE FOR CYSTITIS OR UNDERLYING C HRONIC BLADDER WALL HYPERTROPHY. UROLOGY REFERRAL CAN BE CONSIDERED GIVEN THE DEGREE OF THICKENING. 2. Mild prostatomegaly at 4.6 cm wide. 3. Hepatosplenomegaly (liver 19.6 cm and spleen 15.2 cm). Clinically correlate.
[2023-12-15] MEDS: cefTRIAXone IN SWFI 1,000 MG/10 ML SYRINGE IVP STA (12:46)
[2023-12-15 12:51] VITALS: BP 118/78; PULSE 86; TEMP 98.4
== END 2023-12-15 12:53 | disposition home or self-care (01) ==
LOC: EC 10:42
DX: N39.0 Urinary tract infection, site not specified (principal); N32.89 Other specified disorders of bladder; R16.2 Hepatomegaly with splenomegaly, not elsewhere classified; Z87.891 Personal history of nicotine dependence
CPT/HCPCS: 36415; 93005; 80053; 82150; 83605; 83690; 84484; 85025; 81001; 87086; 87636; 74177; 99284; 96374; 96361; J0696; Q9967